=== PATIENT | male | born 1955 | race Caucasian/White ===

== ENCOUNTER 2022-04-13 11:39 | Emergency (ER) | payer OTHER ==
[~2022-04-13] VITALS: Ht 177.8 cm; Wt 64.4 kg
[2022-04-13] MEDS ORDERED: MELOXICAM7.5 MG PO (12:41)
[2022-04-13] MEDS ORDERED: AMOX-CLAV 875-1 EACH PO (12:41)
== END 2022-04-13 12:53 | disposition home or self-care (01) ==
LOC: ED 11:39
DX: S81.851A Open bite, right lower leg, initial encounter (principal); W54.0XXA Bitten by dog, initial encounter; Y93.89 Activity, other specified; Y92.89 Other specified places as the place of occurrence of the external cause; Y99.8 Other external cause status

== ENCOUNTER 2022-05-04 12:34 | Emergency (ER) | payer MEDICARE ==
[~2022-05-04] VITALS: Ht 177.8 cm; Wt 65.8 kg
[~2022-05-04 12:34] MED LIST: AMOX-CLAV 875-1 EACH PO; MELOXICAM7.5 MG PO
[2022-05-04 14:34] LABS: BASO % 0.5 % (0.0-1.0); EOS % 0.4 % (1.0-4.0); LYMPH # 1.8 10*3/uL (1.3-4.4); LYMPH % 24.5 % (27.0-41.0); MEAN CELL VOLUME 95.3 fl (80.0-94.0); MEAN CORPUSCULAR HGB 30.8 pg (27.0-31.0); MEAN CORPUSCULAR HGB CONC 32.3 g/dl (33.0-37.0); MEAN PLATELET VOLUME 9.7 fl (9.6-12.3); MONO # 0.5 10*3/uL (0.1-1.0); MONO % 7.4 % (3.0-9.0); NEUT # 4.9 10*3/uL (2.3-7.9); NEUT % 66.9 % (47.0-73.0); PLATELET COUNT AUTOMATED 131 10*3/uL (130-400); RED BLOOD COUNT 4.51 10*6/uL (4.50-5.90); RED CELL DISTRI WIDTH 13.4 % (0-14.5); WHITE BLOOD COUNT 7.3 10*3/uL (4.8-10.8)
[2022-05-04 14:48] LABS: ALKALINE PHOSPHATASE 80 U/L (46-116); BUN 15 mg/dl (9-23); CHLORIDE 103 mmol/L (98-107); CREATININE 1.25 mg/dL (0.70-1.30); POTASSIUM 4.3 mmol/L (3.4-5.1); SODIUM 137 mmol/L (136-145); TOTAL PROTEIN 7.2 gm/dL (6.0-8.0)
[2022-05-04 15:21] LABS: SGPT/ALT 12 U/L (10-49)
[2022-05-04] MEDS ORDERED: AMOX-CLAV 875-1 EACH PO (16:18)
== END 2022-05-04 16:30 ==
LOC: ED 12:34
PROVIDERS: Physician Assistant
DX: S20.211A Contusion of right front wall of thorax, initial encounter (principal); S81.851A Open bite, right lower leg, initial encounter; W19.XXXA Unspecified fall, initial encounter; Y93.89 Activity, other specified; Y92.89 Other specified places as the place of occurrence of the external cause; Y99.8 Other external cause status

== ENCOUNTER → 2022-05-15 | Outpatient (CLI) | payer MEDICARE ==
[~2022-05-15] MED LIST changes: +ACYCLOVIR400 MG PO; +DULERA 100 MCG8.8 GM INH; +ELIQUIS5 M1 PO; +GABAPENTIN100 M2 PO; +LEVOFLOXACIN500 MG PO; +NEURONTIN300 MG PO; +OMEPRAZOLE MAGN20 MG PO; +PROCHLORPERAZIN10 MG PO; +ZYVOX600 MG PO
== END | disposition home or self-care (01) ==
LOC: WOUNDCARE 01:28
PROVIDERS: ATTEND Nurse Practitioner Family
DX: S91.051A Open bite, right ankle, initial encounter (principal); L97.812 Non-pressure chronic ulcer of other part of right lower leg with fat layer exposed; C90.00 Multiple myeloma not having achieved remission; I48.91 Unspecified atrial fibrillation; N40.0 Benign prostatic hyperplasia without lower urinary tract symptoms; K21.9 Gastro-esophageal reflux disease without esophagitis; F17.200 Nicotine dependence, unspecified, uncomplicated; W54.0XXA Bitten by dog, initial encounter; Y93.89 Activity, other specified; Y92.89 Other specified places as the place of occurrence of the external cause; Y99.8 Other external cause status